=== PATIENT | male | born 1980 | race Caucasian/White ===

== ENCOUNTER → 2025-03-05 10:49 | Outpatient (REF) | payer BC, SELFPAY | LOC: DHSLP 10:49 | PROVIDERS: ATTENDING PHYSICIAN Physician Assistant | DX: G47.33 Obstructive sleep apnea (adult) (pediatric) (principal) | CPT/HCPCS: 95810 ==

== ENCOUNTER → 2025-04-26 09:15 | Outpatient (REF) | payer BC, SELFPAY | LOC: CLAB 09:15 | PROVIDERS: ATTENDING PHYSICIAN Otolaryngology | DX: J32.2 Chronic ethmoidal sinusitis (principal); R09.81 Nasal congestion; J34.3 Hypertrophy of nasal turbinates; J34.89 Other specified disorders of nose and nasal sinuses | CPT/HCPCS: 88304; 88311 ==